=== PATIENT | female | born 2000 | race Caucasian/White ===

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

== ENCOUNTER 2019-07-01 11:56 | Emergency (ER) | payer BC, OTHER ==
[2019-07-01 12:47] LABS: Appearance,Urine Cloudy (Clear); Bilirubin,Urine Negative (Negative); Blood,Urine Negative (Negative); Color,Urine Yellow; Glucose,Urine (UA) Negative (Negative); Ketones,Urine Negative (Negative); Leukocyte Esterase,Urine Negative (Negative); Mucus,Urine Occasional /hpf; Nitrite,Urine Negative (Negative); PH, Urine 8.5 (5.0-8.0); Protein,Urine Trace (Negative); RBC,Urine 1 /hpf (0-5); Specific Gravity,Urine 1.023 (1.001-1.035); Squamous Epithelial Cell,Urine 10 /hpf (0-4); Urobilinogen,Urine <2.0 mg/dL (<2.0); WBC,Urine 1 /hpf (0-5)
--- NOTE | 2019-07-01 12:53 | ED ---
General Adult HPI - General Chief complaint: Syncope Stated complaint: syncope Time Seen by Provider: 07/01/19 12:03 Source: patient, RN notes reviewed Mode of arrival: ambulatory Limitations: no limitations - History of Present Illness Initial comments: 19-year-old female presents to the emergency department for a chief complaint of syncope. Patient states that she stood up too quickly this morning from bed and started to get nauseous and lightheaded. States she vomited and then had an episode of syncope. Patient states afterwards she felt completely fine but her mother wanted her to go to [facility]. States that it makes her she was told she needs an EKG and an EEG. She denies any headache. Denies any lightheadedness at this time. States she feels normal. States this similar occurrences have happened before where she stands up too quickly and she gets very lightheaded but she has never lost consciousness. Denies any cardiac histo ry. Denies any injuries. Patient has no other complaints at this time including shortness of breath, chest pain, abdominal pain, nausea or vomiting, headache, or visual changes. - Related Data Previous Rx's Medication Instructions Recorded predniSONE 20 mg PO BID #8 tab 11/23/18 Allergies Allergy/AdvReac Type Severity Reaction Status Date / Time No Known Allergies Allergy Verified 07/01/19 11:58 Review of Systems ROS Statement: Those systems with pertinent positive or pertinent negative responses have been documented in the HPI. ROS Other: All systems not noted in ROS Statement are negative. Past Medical History Past Medical History: No Reported History History of Any Multi-Drug Resistant Organisms: None Reported Past Surgical History: No Surgical Hx Reported Past Psychological History: No Psychological Hx Reported Smoking Status: Never smoker Past Alcohol Use History: Occasional Past Drug Use History: None Reported General Exam Limitations: no limitations General appearance: alert, in no apparent distress Head exam: Present: atraumatic, normocephalic, normal inspection Eye exam: Present: normal appearance, PERRL, EOMI. Absent: scleral icterus, conjunctival injection, periorbital swelling ENT exam: Present: normal exam, mucous membranes moist Neck exam: Present: normal inspection. Absent: tenderness, meningismus, lymphadenopathy Respiratory exam: Present: normal lung sounds bilaterally. Absent: respiratory distress, wheezes, rales, rhonchi, stridor Cardiovascular Exam: Present: regular rate, normal rhythm, normal heart sounds. Absent: systolic murmur, diastolic murmur, rubs, gallop, clicks Neurological exam: Present: alert, oriented X3, CN II-XII intact, normal gait, other (GCS 15) Psychiatric exam: Present: normal affect, normal mood Course Vital Signs 07/01/19 07/01/19 11:57 12:31 Temperature 98.6 F Pulse Rate 77 Respiratory 18 15 Rate Blood Pressure 110/74 115/73 O2 Sat by Pulse 99 98 Oximetry EKG Findings - EKG Comments: EKG Findings:: Normal sinus rhythm, ventricular rate 67, OR interval 138, QTc 412 Medical Decision Making - Medical Decision Making 19-year-old female without any significant past medical history presents for syncope. Patient sit up too quickly from her bed this morning started to get nauseous and lightheaded. She then lost consciousness. Denies headache or any contusions to head. Denies any injuries. Patient went to [facility] and was told to come to the emergency department. EKG shows a normal sinus rhythm without evidence of left ventricular hypertrophy. Urine is negative no evidence of . Denies chest pain shortness of breath. Patient's episode is consistent with a vasovagal syncope. Patient is at baseline at this time. Patient will be discharged home and return if she has any worsening symptoms. - Lab Data Lab Results 07/01/19 07/01/19 Range/Units 12:29 12:29 Urine Color Yellow Urine Appearance Cloudy H (Clear) Urine pH 8.5 H (5.0-8.0) Ur Specific [place] 1.023 (1.001-1.035) Urine Protein Trace H (Negative) Urine Glucose (UA) Negative (Negative) Urine Ketones Negative (Negative) Urine Blood Negative (Negative) Urine Nitrite Negative (Negative) Urine Bilirubin Negative (Negative) Urine Urobilinogen <2.0 (<2.0) mg/dL Ur Leukocyte Esterase Negative (Negative) Urine RBC 1 (0-5) /hpf Urine WBC 1 (0-5) /hpf Ur Squamous Epith Cells 10 H (0-4) /hpf Urine Mucus Occasional H (None) /hpf Urine HCG, Qual Not Detected (Not Detectd) Disposition Clinical Impression: Vasovagal syncope Disposition: HOME SELF-CARE Condition: Good Instructions (If sedation given, give patient instructions): Syncope (ED) Additional Instructions: Please follow up with primary care in 1-2 days. Do not participate in exertional activity until that time. Return to the emergency department if you have any worsening symptoms or any other episodes of syncope. Is patient prescribed a controlled substance at d/c from ED?: No Referrals: Roel Kimbrough MD [Primary Care Provider] - 1-2 days Time of Disposition: 12:53
[2019-07-01 13:19] VITALS: BP 106/68; PULSE 80; RESP 16; TEMP 98.1
== END 2019-07-01 13:19 | disposition home or self-care (01) ==
LOC: EC 11:56
DX: R55 Syncope and collapse (principal); R42 Dizziness and giddiness; R11.2 Nausea with vomiting, unspecified; Z32.02 Encounter for pregnancy test, result negative
CPT/HCPCS: 81001; 81025; 93005; 99284

== ENCOUNTER 2020-09-30 09:39 | Emergency (ER) | payer BC ==
[2020-09-30 09:45] VITALS: BP 120/66; PULSE 98; RESP 18; TEMP 98.1
--- NOTE | 2020-09-30 10:08 | XR ---
EXAMINATION TYPE: XR chest 2V DATE OF EXAM: 09/30/2020 COMPARISON: NONE HISTORY: Shortness of breath. TECHNIQUE: Frontal and lateral views of the chest are obtained. FINDINGS: There is no focal air space opacity, pleural effusion, or pneumothorax seen. The cardiac silhouette size is within normal limits. Slight underlying scoliotic curvature. Overlying metallic ni pple ornaments incidentally seen. IMPRESSION: No acute cardiopulmonary process.
--- NOTE | 2020-09-30 10:23 | ED ---
General Adult HPI - General Chief complaint: Shortness of Breath Stated complaint: Chest tightness, SOB, Covid + Time Seen by Provider: 09/30/20 09:49 Source: patient, RN notes reviewed Mode of arrival: ambulatory Limitations: no limitations - History of Present Illness Initial comments: This is a 20-year-old female presents emergency Department chief complaint of ongoing shortness of breath, chest tightness. Patient states that she was diagnosed with covid A week ago. She states she started with symptoms approximately 1213 days ago. Patient denies any current fevers. Patient states she has no history of lung disease, no history of smoking. Patient states that her significant other has similar symptoms on was also diagnosed. She denies any focal weakness. Patient has no GI symptoms. - Related Data Home Medications Medication Instructions Recorded Confirmed Etonogestrel [Nexplanon] 1 implant SQ [id number] 09/30/20 09/30/20 Previous Rx's Medication Instructions Recorded Dexamethasone 6 mg PO DAILY #3 tablet 09/30/20 Allergies Allergy/AdvReac Type Severity Reaction Status Date / Time No Known Allergies Allergy Verified 09/30/20 09:45 Review of Systems ROS Statement: Those systems with pertinent positive or pertinent negative responses have been documented in the HPI. ROS Other: All systems not noted in ROS Statement are negative. Past Medical History Past Medical History: No Reported History History of Any Multi-Drug Resistant Organisms: None Reported Past Surgical History: No Surgical Hx Reported Past Psychological History: Anxiety Smoking Status: Never smoker Past Alcohol Use History: Occasional Past Drug Use History: None Reported General Exam Limitations: no limitations General appearance: alert, in no apparent distress Head exam: Present: atraumatic, normocephalic, normal inspection Eye exam: Present: normal appearance, PERRL, EOMI. Absent: scleral icterus, conjunctival injection, periorbital swelling ENT exam: Present: normal exam, normal oropharynx, mucous membranes moist, TM's normal bilaterally Neck exam: Present: normal inspection, full ROM. Absent: tenderness, meningismus, lymphadenopathy Respiratory exam: Present: normal lung sounds bilaterally. Absent: respiratory distress, wheezes, rales, rhonchi, stridor Cardiovascular Exam: Present: regular rate, normal rhythm, normal heart sounds. Absent: systolic murmur, diastolic murmur, rubs, gallop, clicks GI/Abdominal exam: Present: soft, normal bowel sounds. Absent: distended, tenderness, guarding, rebound, rigid Neurological exam: Present: alert, oriented X3 Skin exam: Present: warm, dry, intact, normal color. Absent: rash Course Vital Signs 09/30/20 09:41 Temperature 98.1 F Pulse Rate 98 Respiratory 18 Rate Blood Pressure 120/66 O2 Sat by Pulse 99 Oximetry Medical Decision Making - Medical Decision Making Chest x-ray is unremarkable. Patient is currently stable, no signs distress. Patient will be discharged in stable condition. Disposition Clinical Impression: COVID-19 Disposition: HOME SELF-CARE Condition: Stable Instructions (If sedation given, give patient instructions): Dyspnea (ED) Additional Instructions: Please return to the Emergency Department if symptoms worsen or any other concerns. Prescriptions: Dexamethasone 6 mg PO DAILY #3 tablet Is patient prescribed a controlled substance at d/c from ED?: No Referrals: Christopher Michael MD [Primary Care Provider] - 1-2 days Time of Disposition: 10:22
== END 2020-09-30 10:30 | disposition home or self-care (01) ==
LOC: EC 09:39
DX: U07.1 COVID-19 (principal); Z79.3 Long term (current) use of hormonal contraceptives
CPT/HCPCS: 71046; 99284

== ENCOUNTER 2020-11-21 14:07 | Emergency (ER) | payer BC ==
[2020-11-21 14:14] VITALS: TEMP 97.9
--- NOTE | 2020-11-21 15:13 | ED ---
General Adult HPI - General Chief complaint: Chest Pain Stated complaint: SOB,Chest tightness Time Seen by Provider: 11/21/20 14:28 Source: patient, RN notes reviewed Mode of arrival: ambulatory Limitations: no limitations - History of Present Illness Initial comments: 20-year-old female without any significant past medical history presents to the emergency room for shortness of breath. Patient states that just before [place] she was diagnosed with COVID. Patient states she had a cough and shortness of breath at that time. Patient states that everything except her congestion has resolved however within the past week she has had shortness of breath again. States symptoms her chest feels tight. Patient did see her primary care provider who started her on an antibiotic and steroid but it has not been helping. Patient reports that she has been anxiety and denies any she gets anxious she gets short of breath. Patient denies anything worsening or alleviating or shortness of breath. Denies any swelling of her legs. Denies any fevers or chills. Denies any pain with breathing. Denies oral contraceptive pills.Patient has no other complaints at this time including chest pain, abdominal pain, nausea or vomiting, headache, or visual changes. - Related Data Home Medications Medication Instructions Recorded Confirmed Etonogestrel [Nexplanon] 1 implant SQ [id number] 09/30/20 09/30/20 Previous Rx's Medication Instructions Recorded Dexamethasone 6 mg PO DAILY #3 tablet 09/30/20 Allergies Allergy/AdvReac Type Severity Reaction Status Date / Time No Known Allergies Allergy Verified 11/21/20 14:14 Review of Systems ROS Statement: Those systems with pertinent positive or pertinent negative responses have been documented in the HPI. ROS Other: All systems not noted in ROS Statement are negative. Past Medical History Past Medical History: No Reported History History of Any Multi-Drug Resistant Organisms: None Reported Past Surgical History: No Surgical Hx Reported Past Psychological History: Anxiety Smoking Status: Never smoker Past Alcohol Use History: Occasional Past Drug Use History: None Reported General Exam Limitations: no limitations General appearance: alert Head exam: Present: atraumatic Eye exam: Present: normal appearance, PERRL, EOMI. Absent: scleral icterus ENT exam: Present: normal exam, mucous membranes moist Neck exam: Present: normal inspection, full ROM. Absent: tenderness Respiratory exam: Present: normal lung sounds bilaterally. Absent: respiratory distress Cardiovascular Exam: Present: regular rate, normal rhythm, normal heart sounds GI/Abdominal exam: Present: soft, normal bowel sounds. Absent: distended, tenderness, guarding, rebound, rigid Course Vital Signs 11/21/20 11/21/20 14:10 15:12 Temperature 97.9 F Pulse Rate 88 Respiratory 18 20 Rate Blood Pressure 126/75 O2 Sat by Pulse 98 Oximetry EKG Findings - EKG Comments: EKG Findings:: NSR, vent rate 86, GA int 144, QTc 418 Medical Decision Making - Medical Decision Making HPI and physical exam as documented. Patient is well appearing, sitting up in bed. No respiratory distress. Respirations are even and unlabored. Vitals are stable, 98% on room air. EKG is nonischemic. CBC CMP unremarkable. Troponin is negative. D-dimer is normal at 0.24. Chest x-ray shows no acute process. At this time patient was discharged home to follow up with primary care. She will return here for any worsening symptoms. I discussed this case and reviewed ekg/images with attending Dr. Pressley who agrees with this assessment and treatment plan. - Lab Data Result diagrams: 11/21/20 15:09 11/21/20 15:09 Lab Results 11/21/20 11/21/20 11/21/20 Range/Units 15:09 15:09 15:09 WBC 8.2 (3.8-10.6) k/uL RBC 4.50 (3.80-5.40) m/uL Hgb 14.1 (11.4-16.0) gm/dL Hct 41.2 (34.0-46.0) % MCV 91.7 (80.0-100.0) fL MCH 31.3 (25.0-35.0) pg MCHC 34.1 (31.0-37.0) g/dL RDW 12.3 (11.5-15.5) % Plt Count 254 (150-450) k/uL MPV 7.5 Neutrophils % 59 % Lymphocytes % 34 % Monocytes % 4 % Eosinophils % 1 % Basophils % 1 % Neutrophils # 4.8 (1.3-7.7) k/uL Lymphocytes # 2.8 (1.0-4.8) k/uL Monocytes # 0.3 (0-1.0) k/uL Eosinophils # 0.1 (0-0.7) k/uL Basophils # 0.1 (0-0.2) k/uL PT 11.0 (9.0-12.0) sec INR 1.0 (<1.2) APTT 22.9 (22.0-30.0) sec D-Dimer 0.24 (<0.60) mg/L FEU Sodium 139 (137-145) mmol/L Potassium 3.4 L (3.5-5.1) mmol/L Chloride 103 (98-107) mmol/L Carbon Dioxide 24 (22-30) mmol/L Anion Gap 12 mmol/L BUN 17 (7-17) mg/dL Creatinine 0.65 (0.52-1.04) mg/dL Est GFR (CKD-EPI)AfAm >90 (>60 ml/min/1.73 sqM) Est GFR (CKD-EPI)NonAf >90 (>60 ml/min/1.73 sqM) Glucose 99 (74-99) mg/dL Calcium 9.8 (8.4-10.2) mg/dL Magnesium 2.0 (1.6-2.3) mg/dL Total Bilirubin 0.6 (0.2-1.3) mg/dL AST 23 (14-36) U/L ALT 35 H (4-34) U/L Alkaline Phosphatase 58 (38-126) U/L Troponin I (0.000-0.034) ng/mL Total Protein 8.0 (6.3-8.2) g/dL Albumin 4.8 (3.5-5.0) g/dL HCG, Qual Not Detected 11/21/20 Range/Units 15:09 WBC (3.8-10.6) k/uL RBC (3.80-5.40) m/uL Hgb (11.4-16.0) gm/dL Hct (34.0-46.0) % MCV (80.0-100.0) fL MCH (25.0-35.0) pg MCHC (31.0-37.0) g/dL RDW (11.5-15.5) % Plt Count (150-450) k/uL MPV Neutrophils % % Lymphocytes % % Monocytes % % Eosinophils % % Basophils % % Neutrophils # (1.3-7.7) k/uL Lymphocytes # (1.0-4.8) k/uL Monocytes # (0-1.0) k/uL Eosinophils # (0-0.7) k/uL Basophils # (0-0.2) k/uL PT (9.0-12.0) sec INR (<1.2) APTT (22.0-30.0) sec D-Dimer (<0.60) mg/L FEU Sodium (137-145) mmol/L Potassium (3.5-5.1) mmol/L Chloride (98-107) mmol/L Carbon Dioxide (22-30) mmol/L Anion Gap mmol/L BUN (7-17) mg/dL Creatinine (0.52-1.04) mg/dL Est GFR (CKD-EPI)AfAm (>60 ml/min/1.73 sqM) Est GFR (CKD-EPI)NonAf (>60 ml/min/1.73 sqM) Glucose (74-99) mg/dL Calcium (8.4-10.2) mg/dL Magnesium (1.6-2.3) mg/dL Total Bilirubin (0.2-1.3) mg/dL AST (14-36) U/L ALT (4-34) U/L Alkaline Phosphatase (38-126) U/L Troponin I <0.012 (0.000-0.034) ng/mL Total Protein (6.3-8.2) g/dL Albumin (3.5-5.0) g/dL HCG, Qual Disposition Clinical Impression: Shortness of breath Disposition: HOME SELF-CARE Condition: Good Instructions (If sedation given, give patient instructions): Shortness of Breath (ED) Additional Instructions: Please follow-up with your doctor in one to 2 days. If you have any worsening symptoms return to the emergency room. Is patient prescribed a controlled substance at d/c from ED?: No Referrals: Christopher Michael MD [Primary Care Provider] - 1-2 days Time of Disposition: 16:50
[2020-11-21 15:14] VITALS: RESP 20
[2020-11-21 15:19] LABS: Basophils # (A) 0.1 k/uL (0-0.2); Basophils % (A) 1 %; Eosinophils # (A) 0.1 k/uL (0-0.7); Eosinophils % (A) 1 %; HCT 41.2 % (34.0-46.0); HGB 14.1 gm/dL (11.4-16.0); Lymphocytes # (A) 2.8 k/uL (1.0-4.8); Lymphocytes % (A) 34 %; MCH 31.3 pg (25.0-35.0); MCHC 34.1 g/dL (31.0-37.0); MCV 91.7 fL (80.0-100.0); Mean Platelet Volume 7.5; Monocytes # (A) 0.3 k/uL (0-1.0); Monocytes % (A) 4 %; Neutrophils # (A) 4.8 k/uL (1.3-7.7); Neutrophils % (A) 59 %; Platelet Count 254 k/uL (150-450); RDW 12.3 % (11.5-15.5); WBC 8.2 k/uL (3.8-10.6)
[2020-11-21 15:30] LABS: ALT 35 U/L (4-34); AST 23 U/L (14-36); African American GFR (CKD) >90 (>60 ml/min/1.73 sqM); Albumin 4.8 g/dL (3.5-5.0); Alkaline Phosphatase 58 U/L (38-126); Anion Gap 12 mmol/L; Blood Urea Nitrogen 17 mg/dL (7-17); Calcium 9.8 mg/dL (8.4-10.2); Carbon Dioxide 24 mmol/L (22-30); Chloride 103 mmol/L (98-107); Glucose 99 mg/dL (74-99); Non-African American GFR(CKD) >90 (>60 ml/min/1.73 sqM); Potassium 3.4 mmol/L (3.5-5.1); Sodium 139 mmol/L (137-145); Total Bilirubin 0.6 mg/dL (0.2-1.3)
[2020-11-21 15:32] LABS: D-Dimer 0.24 mg/L FEU (<0.60); Partial Thromboplastin Time 22.9 sec (22.0-30.0)
--- NOTE | 2020-11-21 15:48 | XR ---
EXAMINATION TYPE: XR chest 1V portable DATE OF EXAM: 11/21/2020 COMPARISON: Prior chest x-ray 09/30/2020 HISTORY: Chest pain TECHNIQUE: Single frontal view of the chest is obtained. FINDINGS: There is no focal air space opacity, pleural effusion, or pneumothorax seen. The cardiac silhouette size is within normal limits. There are metallic post through the regions of the nipples . There is a spinal curvature. The osseous structures are intact. IMPRESSION: No acute process.
[2020-11-21 16:01] LABS: HCG,Qualitative Serum Not Detected
[2020-11-21 17:08] VITALS: BP 133/60; PULSE 80
== END 2020-11-21 17:07 | disposition home or self-care (01) ==
LOC: EC 14:07
DX: R06.02 Shortness of breath (principal); R05 Cough; Z20.822 Contact with and (suspected) exposure to COVID-19
CPT/HCPCS: 36415; 71045; 80053; 83735; 84484; 84703; 85025; 85379; 85610; 85730; 93005; 99285

== ENCOUNTER → 2021-04-17 | Outpatient (CLI) | payer BC ==
--- NOTE | 2021-04-17 15:01 | US ---
EXAMINATION TYPE: US venous doppler duplex LE RT DATE OF EXAM: 04/17/2021 2:21 PM COMPARISON: NONE CLINICAL HISTORY: M79.661 PAIN IN RIGHT LOWER LEG. right leg heaviness, no h/o dvt, no swelling, no i njury SIDE PERFORMED: right TECHNIQUE: The lower extremity deep venous system is examined utilizing real time linear array sonog marcell with graded compression, doppler sonography and color-flow sonography. VESSELS IMAGED: Common Femoral Vein Deep Femoral Vein Greater Saphenous Vein * Femoral Vein Popliteal Vein Proximal Calf Veins (* superficial vessels) Right Leg: Negative for DVT IMPRESSION: No sonographic evidence for deep vein thrombosis of the right lower extremity.
== END | disposition home or self-care (01) ==
LOC: RADUSMAIN 14:02
PROVIDERS: ATTEND Family Medicine
DX: M79.661 Pain in right lower leg (principal)

== ENCOUNTER 2021-07-25 21:07 | Emergency (ER) | payer BC ==
[2021-07-25 22:02] VITALS: TEMP 98.1
[2021-07-25] MEDS ORDERED: SODIUM CHLORIDE 0.9% 1,000 ML IV STA (23:04)
--- NOTE | 2021-07-25 23:06 | ED ---
General Adult HPI - General Chief complaint: Abdominal Pain Stated complaint: Abdominal Pain Time Seen by Provider: 07/25/21 22:50 Source: patient Mode of arrival: ambulatory Limitations: no limitations - History of Present Illness Initial comments: 21-year-old female presents to the emergency room for right lower quadrant pain. This started about 4 hours prior to arrival. Patient states initially when it started she could not walk. However the pain seems to be getting better. She admits to nausea at first but denies vomiting. Denies fevers or chills.Patient has no other complaints at this time including shortness of breath, chest pain, nausea or vomiting, headache, or visual changes. - Related Data Home Medications Medication Instructions Recorded Confirmed Etonogestrel [Nexplanon] 1 implant SQ [id number] 09/30/20 09/30/20 Previous Rx's Medication Instructions Recorded Dexamethasone 6 mg PO DAILY #3 tablet 09/30/20 Allergies Allergy/AdvReac Type Severity Reaction Status Date / Time No Known Allergies Allergy Verified 11/21/20 14:14 Review of Systems ROS Statement: Those systems with pertinent positive or pertinent negative responses have been documented in the HPI. ROS Other: All systems not noted in ROS Statement are negative. Past Medical History Past Medical History: No Reported History History of Any Multi-Drug Resistant Organisms: None Reported Past Surgical History: No Surgical Hx Reported Past Psychological History: Anxiety Smoking Status: Never smoker Past Alcohol Use History: Occasional Past Drug Use History: None Reported General Exam Limitations: no limitations General appearance: alert, in no apparent distress Head exam: Present: atraumatic Eye exam: Present: normal appearance, PERRL, EOMI ENT exam: Present: normal exam, mucous membranes moist Neck exam: Present: normal inspection, full ROM. Absent: tenderness Respiratory exam: Present: normal lung sounds bilaterally. Absent: respiratory distress, wheezes Cardiovascular Exam: Present: regular rate, normal rhythm, normal heart sounds GI/Abdominal exam: Present: soft, tenderness (RLQ tenderness), normal bowel sounds. Absent: distended Neurological exam: Present: alert Course Vital Signs 07/25/21 07/26/21 21:58 02:40 Temperature 98.1 F Pulse Rate 100 96 Respiratory 16 20 Rate Blood Pressure 146/93 132/86 O2 Sat by Pulse 98 96 Oximetry Medical Decision Making - Medical Decision Making Vitals are stable. CBC CMP unremarkable. Lipase is normal. HCG is negative. Urinalysis is negative. Ultrasound of the pelvis shows a simple 2.5 cm right ovarian cyst. Ultrasound of the abdomen shows no solid or cystic mass, no free fluid, appendix not seen. CT abdomen and pelvis shows moderate free fluid in the pelvis and also around the uterine fundus. This fluid has low attenuation and is consistent with nonhemorrhagic fluid. There are bilateral ovarian cysts noted. At this time patient is stable for outpatient follow-up. Can be discharged home. Will be given Toradol for pain. Will return here for any worsening symptoms. - Lab Data Result diagrams: 07/26/21 00:05 07/26/21 00:05 Lab Results 07/26/21 07/26/21 07/26/21 Range/Units 00:05 00:05 00:05 WBC 10.4 (3.8-10.6) k/uL RBC 4.35 (3.80-5.40) m/uL Hgb 13.8 (11.4-16.0) gm/dL Hct 40.3 (34.0-46.0) % MCV 92.7 (80.0-100.0) fL MCH 31.7 (25.0-35.0) pg MCHC 34.1 (31.0-37.0) g/dL RDW 11.8 (11.5-15.5) % Plt Count 274 (150-450) k/uL MPV 7.6 Neutrophils % 67 % Lymphocytes % 26 % Monocytes % 4 % Eosinophils % 1 % Basophils % 1 % Neutrophils # 6.9 (1.3-7.7) k/uL Lymphocytes # 2.7 (1.0-4.8) k/uL Monocytes # 0.4 (0-1.0) k/uL Eosinophils # 0.1 (0-0.7) k/uL Basophils # 0.1 (0-0.2) k/uL Sodium 138 (137-145) mmol/L Potassium 3.7 (3.5-5.1) mmol/L Chloride 103 (98-107) mmol/L Carbon Dioxide 25 (22-30) mmol/L Anion Gap 10 mmol/L BUN 13 (7-17) mg/dL Creatinine 0.63 (0.52-1.04) mg/dL Est GFR (CKD-EPI)AfAm >90 (>60 ml/min/1.73 sqM) Est GFR (CKD-EPI)NonAf >90 (>60 ml/min/1.73 sqM) Glucose 96 (74-99) mg/dL Plasma Lactic Acid Jimenez (0.7-2.0) mmol/L Calcium 9.6 (8.4-10.2) mg/dL Total Bilirubin 0.4 (0.2-1.3) mg/dL AST 24 (14-36) U/L ALT 27 (4-34) U/L Alkaline Phosphatase 72 (38-126) U/L Total Protein 7.1 (6.3-8.2) g/dL Albumin 4.4 (3.5-5.0) g/dL Lipase 57 (23-300) U/L HCG, Qual Not Detected Urine Color Yellow Urine Appearance Clear (Clear) Urine pH 6.5 (5.0-8.0) Ur Specific [place] 1.035 (1.001-1.035) Urine Protein Trace H (Negative) Urine Glucose (UA) Negative (Negative) Urine Ketones Negative (Negative) Urine Blood Negative (Negative) Urine Nitrite Negative (Negative) Urine Bilirubin Negative (Negative) Urine Urobilinogen 2.0 (<2.0) mg/dL Ur Leukocyte Esterase Negative (Negative) 07/26/21 Range/Units 00:05 WBC (3.8-10.6) k/uL RBC (3.80-5.40) m/uL Hgb (11.4-16.0) gm/dL Hct (34.0-46.0) % MCV (80.0-100.0) fL MCH (25.0-35.0) pg MCHC (31.0-37.0) g/dL RDW (11.5-15.5) % Plt Count (150-450) k/uL MPV Neutrophils % % Lymphocytes % % Monocytes % % Eosinophils % % Basophils % % Neutrophils # (1.3-7.7) k/uL Lymphocytes # (1.0-4.8) k/uL Monocytes # (0-1.0) k/uL Eosinophils # (0-0.7) k/uL Basophils # (0-0.2) k/uL Sodium (137-145) mmol/L Potassium (3.5-5.1) mmol/L Chloride (98-107) mmol/L Carbon Dioxide (22-30) mmol/L Anion Gap mmol/L BUN (7-17) mg/dL Creatinine (0.52-1.04) mg/dL Est GFR (CKD-EPI)AfAm (>60 ml/min/1.73 sqM) Est GFR (CKD-EPI)NonAf (>60 ml/min/1.73 sqM) Glucose (74-99) mg/dL Plasma Lactic Acid Jimenez 0.9 (0.7-2.0) mmol/L Calcium (8.4-10.2) mg/dL Total Bilirubin (0.2-1.3) mg/dL AST (14-36) U/L ALT (4-34) U/L Alkaline Phosphatase (38-126) U/L Total Protein (6.3-8.2) g/dL Albumin (3.5-5.0) g/dL Lipase (23-300) U/L HCG, Qual Urine Color Urine Appearance (Clear) Urine pH (5.0-8.0) Ur Specific [place] (1.001-1.035) Urine Protein (Negative) Urine Glucose (UA) (Negative) Urine Ketones (Negative) Urine Blood (Negative) Urine Nitrite (Negative) Urine Bilirubin (Negative) Urine Urobilinogen (<2.0) mg/dL Ur Leukocyte Esterase (Negative) Disposition Clinical Impression: Ovarian cyst Disposition: HOME SELF-CARE Condition: Good Instructions (If sedation given, give patient instructions): Ovarian Cyst (ED) Additional Instructions: Please follow up with your doctor in 1-2 days. Take motrin and tylenol for pain. Return to the ER for any worsening symptoms. Is patient prescribed a controlled substance at d/c from ED?: No Referrals: Wes Bush MD [Primary Care Provider] - 1-2 days Time of Disposition: 02:21
[2021-07-26 00:22] LABS: Appearance,Urine Clear (Clear); Bilirubin,Urine Negative (Negative); Blood,Urine Negative (Negative); Color,Urine Yellow; Glucose,Urine (UA) Negative (Negative); Ketones,Urine Negative (Negative); Leukocyte Esterase,Urine Negative (Negative); Nitrite,Urine Negative (Negative); PH, Urine 6.5 (5.0-8.0); Protein,Urine Trace (Negative); Specific Gravity,Urine 1.035 (1.001-1.035)
[2021-07-26 00:24] LABS: Basophils # (A) 0.1 k/uL (0-0.2); Basophils % (A) 1 %; Eosinophils # (A) 0.1 k/uL (0-0.7); Eosinophils % (A) 1 %; HCT 40.3 % (34.0-46.0); HGB 13.8 gm/dL (11.4-16.0); Lymphocytes # (A) 2.7 k/uL (1.0-4.8); Lymphocytes % (A) 26 %; MCH 31.7 pg (25.0-35.0); MCHC 34.1 g/dL (31.0-37.0); MCV 92.7 fL (80.0-100.0); Mean Platelet Volume 7.6; Monocytes # (A) 0.4 k/uL (0-1.0); Monocytes % (A) 4 %; Neutrophils # (A) 6.9 k/uL (1.3-7.7); Neutrophils % (A) 67 %; Platelet Count 274 k/uL (150-450); RBC 4.35 m/uL (3.80-5.40); RDW 11.8 % (11.5-15.5); WBC 10.4 k/uL (3.8-10.6)
[2021-07-26 00:33] LABS: ALT 27 U/L (4-34); AST 24 U/L (14-36); African American GFR (CKD) >90 (>60 ml/min/1.73 sqM); Albumin 4.4 g/dL (3.5-5.0); Alkaline Phosphatase 72 U/L (38-126); Anion Gap 10 mmol/L; Blood Urea Nitrogen 13 mg/dL (7-17); Calcium 9.6 mg/dL (8.4-10.2); Carbon Dioxide 25 mmol/L (22-30); Chloride 103 mmol/L (98-107); Glucose 96 mg/dL (74-99); Lipase 57 U/L (23-300); Non-African American GFR(CKD) >90 (>60 ml/min/1.73 sqM); Potassium 3.7 mmol/L (3.5-5.1); Sodium 138 mmol/L (137-145); Total Bilirubin 0.4 mg/dL (0.2-1.3); Total Protein 7.1 g/dL (6.3-8.2)
[2021-07-26 00:55] LABS: HCG,Qualitative Serum Not Detected
--- NOTE | 2021-07-26 01:05 | US ---
EXAMINATION TYPE: US abdomen APPY DATE OF EXAM: 07/26/2021 COMPARISON: NONE CLINICAL HISTORY: pain. RLQ pain APPENDIX AP Diameter (normal < 6mm): Not visualized Measured outer wall to outer wall. Is the appendix seen in its entirety from the proximal cecum to distal end: No Is the appendix compressible: Not visualized Peristalsing, probable fluid filled bowel loops visualized. IMPRESSION: No solid or cystic mass identified. No free fluid. Appendix not seen.
--- NOTE | 2021-07-26 01:06 | US ---
EXAMINATION TYPE: US pelvic complete DATE OF EXAM: 07/26/2021 COMPARISON: US 10/11/2018 CLINICAL HISTORY: with doppler. RLQ pain TECHNIQUE: . Transabdominal sonographic images of the pelvis were acquired EXAM MEASUREMENTS: Uterus: 7.6 x 3.7 x 5.1 cm Endometrial Stripe: 0.4 cm Right Ovary: 3.6 x 3.1 x 3.0 cm Left Ovary: 2.6 x 2.1 x 2.1 cm 1. Uterus: Anteverted wnl 2. Endometrium: wnl 3. Right Ovary: Cyst measuring 2.9 x 2.4 x 2.3 cm 4. Left Ovary: wnl Spectral, color and waveform doppler imaging shows good arterial and venous flow within the ovaries ; there is no evidence for ovarian torsion. 5. Bilateral Adnexa: Moderate amount of free fluid visualized bilaterally 6. Posterior cul-de-sac: wnl IMPRESSION: There is free fluid in the cul-de-sac. No evidence of ovarian torsion. There is simple 2. 5 cm right ovarian cyst. Normal uterus.
--- NOTE | 2021-07-26 02:07 | CT ---
EXAMINATION TYPE: CT abdomen pelvis w con DATE OF EXAM: 07/26/2021 COMPARISON: None HISTORY: rlq pain, r/o appy. US done earlier. no prior CT. CT DLP: 652 mGycm Automated exposure control for dose reduction was used. CONTRAST: Performed with IV Contrast, patient injected with 100ml mL of Isovue 300. Images obtained from the diaphragm to the floor the pelvis with IV contrast. Lung bases are clear. There is no pleural effusion. Heart size is normal. There is no pericardial eff usion. Liver spleen stomach pancreas gallbladder appear intact. Bile ducts are not dilated. There is no adrenal mass. Kidneys show satisfactory contrast opacification. There is no hydronephrosis. Ureter s are not dilated. There is no retroperitoneal adenopathy. There is free fluid in the pelvis. This naranjo s low attenuation. Uterus is anteverted. There is no inguinal hernia. Bladder distends smoothly. There is 3 cm cyst on the right ovary. There is probably a 1.5 Douglas cyst on the left ovary. The cec um is low in the pelvis. The appendix is posterior and appears normal. There is no mesenteric edema. There is no ascites or free air. There is no bowel obstruction. The lumbar vertebra have normal alignment. Posterior elements are intact. There is no compression fra cture. Bony pelvis appears intact. Hip joints are intact. IMPRESSION: Normal appendix. Moderate free fluid in the pelvis in the cul-de-sac and also around the uterine fundus. This fluid naranjo s low attenuation and is consistent with nonhemorrhagic fluid. There are bilateral ovarian cysts.
[2021-07-26] MEDS ORDERED: KETOROLAC 15 MG/ML 1 ML VIAL IVP STA (02:32)
[2021-07-26] MEDS ORDERED: ACET/COD 300 MG/30 MG STARTER PACK 6 TAB BTL PO STA (02:32)
[2021-07-26 02:41] VITALS: BP 132/86; PULSE 96; RESP 20
== END 2021-07-26 02:42 | disposition home or self-care (01) ==
LOC: EC 21:07
DX: N83.201 Unspecified ovarian cyst, right side (principal); N83.202 Unspecified ovarian cyst, left side; F41.9 Anxiety disorder, unspecified; Z79.52 Long term (current) use of systemic steroids
CPT/HCPCS: 36415; 74177; 76705; 76856; 80053; 81003; 83605; 83690; 84703; 85025; 93975; 96374; 99284

== ENCOUNTER 2022-10-01 10:16 | Day surgery (SDC) | payer BC ==
[2022-09-28 09:38] VITALS: BMI 26.6
[~2022-10-01 10:16] MED LIST: SODIUM CHLORIDE 0.9% 1,000 ML IV SCH
[2022-10-01 10:35] VITALS: PULSE 87; RESP 18; TEMP 98.9
[2022-10-01] MEDS ORDERED: SODIUM CHLORIDE 0.9% 500 ML 500 ML IV ONE (13:45)
[2022-10-01 15:46] VITALS: BP 135/74
--- NOTE | 2022-10-01 17:45 | P.EPPROC ---
- EP Procedure Note Electrophysiology Procedure Note: Diagnosis Recurrent presyncope Twelve-lead EKG Sinus mechanism normal HI narrow QRS normal ST segments with early repolarization abnormality, normal variant Isolated T-wave inversion in lead 3 no delta waves no epsilon waves normal QT interval Tilt table test per protocol Baseline blood pressure 122/65 mmHg be sent 177 beats a minute Patient was tilted upright at an angle of 70 per protocol There is an immediate increase in the heart rate to 120 beats a minute with a normal blood pressure This further increased to 135 beats a minute. This is followed by feeling 6 nauseous dizzy and drowsy and a drop in blood pressure to 65 over 70 mmHg systolic When she was laid supine her blood pressure normalized once again Impression Neurocardiogenic phenomena Likely postural tachycardia followed by secondary neurocardiogenic phenomena
== END 2022-10-01 14:15 | disposition home or self-care (01) ==
LOC: CATHEP 10:16
PROVIDERS: ATTEND Internal Medicine Clinical Cardiac Electrophysiology
DX: R55 Syncope and collapse (principal); Z79.899 Other long term (current) drug therapy
CPT/HCPCS: 81025; 93660